=== PATIENT | male | born 1960 | race Caucasian/White ===

== ENCOUNTER → 2017-08-15 | Emergency (ER) | payer OTHER ==
[~2017-08-15] VITALS: Ht 160 cm; Wt 90.7 kg
[~2017-08-15] MED LIST: ASPIRIN81 MG; DIOVAN HCT 3201 EACH; KETO10TA2 PO; LIPITOR40 MG; MEDROLPACK PO; NEURONTIN600 MG; NORFLEX100MG PO; ORPHENADRI30 MG/1 ML; TAMS0.4C
== END | disposition home or self-care (01) ==
LOC: ER 12:06
DX: G89.29 Other chronic pain (principal); M54.5 Low back pain

== ENCOUNTER 2023-05-27 07:26 | Outpatient (CLI) | payer OTHER | END 2023-05-27 07:34 | disposition home or self-care (01) | LOC: SONOGRAMA 07:26 | DX: K80.20 Calculus of gallbladder without cholecystitis without obstruction (principal) ==

== ENCOUNTER 2023-05-30 07:06 | Outpatient (CLI) | payer OTHER | END 2023-05-30 07:09 | disposition home or self-care (01) | LOC: NUCLEAR 07:06 | PROVIDERS: ATTEND Surgery | DX: K80.20 Calculus of gallbladder without cholecystitis without obstruction (principal) | CPT/HCPCS: 78227; A9537; J2805 ==